=== PATIENT | female | born 1965 | race Caucasian/White ===

== ENCOUNTER → 2018-02-09 | Outpatient (CLI) | payer BC | LOC: COL.CARD 10:33 | DX: R00.2 Palpitations (principal) ==

== ENCOUNTER → 2018-05-03 | Outpatient (CLI) | payer BC | LOC: MC.RAD 04-26 13:40 | DX: Z12.31 Encounter for screening mammogram for malignant neoplasm of breast (principal) ==

== ENCOUNTER → 2019-09-30 | Outpatient (CLI) | payer BC | LOC: MC.RAD 07:45 | DX: Z12.31 Encounter for screening mammogram for malignant neoplasm of breast (principal) ==

== ENCOUNTER → 2021-05-22 | Outpatient (CLI) | payer BC | LOC: MC.RAD 07:25 | DX: Z12.31 Encounter for screening mammogram for malignant neoplasm of breast (principal) ==

== ENCOUNTER → 2023-11-10 | Outpatient (CLI) | payer BC | LOC: MC.RAD 07:24 | DX: Z12.31 Encounter for screening mammogram for malignant neoplasm of breast (principal) ==

== ENCOUNTER → 2024-05-18 | Outpatient (CLI) | payer BC ==
[~2024-05-18] MED LIST: Iohexol 300 - 10 ML VIAL IV ONE; Triamcinolone 40 MG/ML 1 ML VIAL IJ ONE
== END ==
LOC: COL.RAD 12:22
DX: M17.11 Unilateral primary osteoarthritis, right knee (principal)
CPT/HCPCS: J0665; J3301; Q9967